=== PATIENT | female | born 1995 | race Two or more races ===

== ENCOUNTER 2018-10-18 20:03 | Observation (INO) | payer SELFPAY ==
[~2018-10-18] VITALS: Ht 152.4 cm; Wt 72.1 kg
[2018-10-18] MEDS ORDERED: PREN-96 PO (23:30)
== END 2018-10-19 | disposition home or self-care (01) | DRG 833 ==
LOC: LDRP 20:03
PROVIDERS: ADMIT Specialist; ATTEND Specialist
DX: O00.01 Abdominal pregnancy with intrauterine pregnancy (principal); O62.9 Abnormality of forces of labor, unspecified; O36.8130 Decreased fetal movements, third trimester, not applicable or unspecified; W18.30XA Fall on same level, unspecified, initial encounter; Y93.89 Activity, other specified; Y92.89 Other specified places as the place of occurrence of the external cause; Y99.8 Other external cause status; Z3A.34 34 weeks gestation of pregnancy
CPT/HCPCS: 59025; 76815; 81002; G0378